=== PATIENT | male | born 1970 | race Asian ===

== ENCOUNTER 2020-03-02 01:20 | Emergency (ER) | payer OTHER ==
[~2020-03-02] VITALS: Ht 172.7 cm; Wt 65.2 kg
[2020-03-02] MEDS ORDERED: ZIPRASIDONE 20 MG INJ IM ONE ×2 (01:24→01:30)
[2020-03-02] MEDS ORDERED: LORazepam 2 MG/ML, 1ML IM ONE (01:30)
[2020-03-02] MEDS ORDERED: LORazepam 2 MG/ML, 1ML ONE ×2 (01:40→02:31)
[2020-03-02 01:47] LABS: BASOPHILS % (AUTO) 0 % (0-1); EOSINOPHILS % (AUTO) 2 % (1-7); LYMPHOCYTES % (AUTO) 40 % (22-44); MEAN CORPUSCULAR HEMOGLOBIN 32.3 pg (27.5-34.5); MEAN CORPUSCULAR HGB CONC 33.5 g/dL (33.2-36.2); MEAN PLATELET VOLUME 6.9 fL (7.4-10.4); MONOCYTES % (AUTO) 7 % (2-9); NEUTROPHILS % (AUTO) 51 % (42-75); PLATELET COUNT 251 x10^3/uL (130-400); RED BLOOD COUNT 5.03 x10^6/uL (4.38-5.82); RED CELL DISTRIBUTION WIDTH 13.4 % (9.4-14.8)
[2020-03-02 01:49] LABS: MD NO
--- NOTE | 2020-03-02 01:50 | NUR ---
THIS IS A 49 YO MALE BIB [facility] FROM HOME FOR ETOH INTOXICATION WITH MGLF WITH WHAT APPEARS TO BE SUPERFICIAL LAC TO UPPER AND BOTTOM LIP. PATIENT BROUGHT IN AND IS NAKED, COMBATIVE, TRYING TO GRAB AND SPIT ON STAFF. PATIENT GROSSLY INTOXICATED, AND UNCOOPERATIVE. PATIENT PLACED IN 4 POINT RESTRAINTS DUE TO COMBATIVE/UNCOOPERATIVE BEHAVIOR AND TRYING TO HIT STAFF, SPIT CHERRY APPLIED FOR ATTEMPT TO BITE/LICK/SPIT ON ANOTHER RN IN ROOM. ALL MONITORING IN PLACE, VSS, MEDICATED PER EMAR. SINUS TACHYCARDIA ON MONITOR IN LOW 100'S. WCTM.
--- NOTE | 2020-03-02 01:55 | NUR ---
CT DELAY, PT UNCOOPERATIVE AT THIS TIME.
[2020-03-02 01:59] LABS: INTERNATIONAL NORMALIZED RATIO 0.94 (0.93-1.1)
[2020-03-02 02:00] LABS: ALANINE AMINOTRANSFERASE 10 U/L (12-78); ALBUMIN 4.6 g/dL (3.4-5.0); ANION GAP 10 mmol/L (5-15); CALCIUM 9.1 mg/dL (8.5-10.1); CHLORIDE 111 mmol/L (98-107); CREATININE 1.24 mg/dL (0.7-1.3)
[2020-03-02 02:04] LABS: ALKALINE PHOSPHATASE 74 U/L (45-117); BILIRUBIN,TOTAL 0.5 mg/dL (0.2-1.0); TOTAL PROTEIN 8.5 g/dL (6.4-8.2)
[2020-03-02] MEDS ORDERED: LORazepam 2 MG/ML, 1ML IM PRN (02:30)
[2020-03-02] MEDS ORDERED: DIPHENHYDRAMINE 50 MG/ML, 1ML IM ONE (02:30)
[2020-03-02] MEDS ORDERED: DIPHENHYDRAMINE 50 MG/ML, 1ML ONE (02:31)
--- NOTE | 2020-03-02 02:37 | NUR ---
PATIENT MEDICATED PER EMAR FOR CONTINUED YELLING/SCREAMING/BEING COMBATIVE NAD TRYING TO GET UP/OUT OF BED. 4 POINT RESTRAINTS STILL IN PLACE. ALL MONITORING IN PLACE
--- NOTE | 2020-03-02 03:00 | NUR ---
REPORT FROM KATHY DUVAL ASSUMING CARE OF PT AT THIS TIME
[2020-03-02] MEDS ORDERED: KETAMINE 10 MG/ML, 20ML ONE ×2 (03:24→03:30)
[2020-03-02] MEDS ORDERED: KETAMINE 10 MG/ML, 20ML IV ONE ×2 (03:30→05:30)
[2020-03-02] MEDS ORDERED: KETAMINE 100 MG/ML, 5ML IV ONE (03:30)
--- NOTE | 2020-03-02 03:32 | NUR ---
CT CALLED TO GET PT TO CT, STS THEY HAVE ANOTHER SCAN GOING RIGHT NOW BUT WILL COME WHEN THEY CAN
--- NOTE | 2020-03-02 04:13 | NUR ---
PT TAKEN TO CT, PT HOWEVER UNCOOPERATIVE AND COMBATIVE WITH STAFF FOR PROCEEDURE, PT GIVEN 100MG KETAMINE PER DR MARQUEZ. DR. MARQUEZ AT BEDSIDE IN CT FOR SEDATION, PT TOLERATED WELL. PER DR MARQUEZ PT REQUIRES SUTURES IN LOWER LIP PT TO BE SEADATED FURTHER FOR THIS PROCEEDURE WELL FOR SAFETY OF STAFF AND PT.
--- NOTE | 2020-03-02 04:30 | NUR ---
DR MARQUEZ AT BEDSIDE FOR SUTURES AT THIS TIME
--- NOTE | 2020-03-02 04:46 | NUR ---
PT MAINTAINING OWN AIRWAY BUT REQ FREQ SUCCTIONING FOR SECRETIONS
[2020-03-02] MEDS ORDERED: DIPH,PERTUSS(ACELL),TET VAC/PF 0.5 ML IM-VACC ONE ×2 (05:00→09:09)
--- NOTE | 2020-03-02 05:22 | NUR ---
PT NOW MANAGING SECRETIONS WELL AT THIS TIME. MINIMAL SUCTIONING NEEDED
--- NOTE | 2020-03-02 05:45 | NUR ---
SECURITY AT BEDSIDE TO ASSIST/ REMOVE SOME RESTRAINTS
[2020-03-02] MEDS ORDERED: MAGNESIUM SULFATE 1 GM, THIAMINE 100 MG, FOLIC ACID 1 MG, MVI ADULT 10 ML in SODIUM CHL... IV ONE (06:30)
--- NOTE | 2020-03-02 06:45 | NUR ---
PT RESTING ON HENRY GARRISON, STILL IN 2PT RESTRAINTS D/T PT THRASHING AROUND INTTERMITTENTLY.
--- NOTE | 2020-03-02 07:17 | NUR ---
REPORT SAMIR DUVAL. PT IN 2 HARD RESTRAINTS. ORDER UP TO DATE. PT MOANING, MOVING, WON'T RESPOND TO COMMANDS, VSS, CMS INTACT.
--- NOTE | 2020-03-02 08:17 | NUR ---
IVF PER MAR. PT MOANING, TRYING TO GET OUT OF BED. VS CHARTED. VOIDED TO URINAL.
[2020-03-02 08:18] VITALS: BP 106/74
--- NOTE | 2020-03-02 08:50 | NUR ---
YAZ FRIEND; [phone] CAN CALL FOR RIDE
--- NOTE | 2020-03-02 08:51 | NUR ---
FRIEND AT BEDSIDE. PT INCOHERENT, WONT FOLLOW COMMANDS, TRYNG TO GET OUT OF BED. SECURITY WAS AT BEDSIDE TO SWITCH ARM/LEG RESTRAINTS. +CMS.
--- NOTE | 2020-03-02 09:49 | NUR ---
REPORT TO REBECCA DUVAL.
--- NOTE | 2020-03-02 10:03 | NUR ---
RESTRAINTS AT THIS TIME DC'D. PT VERBAL AXOX4 AND ABLE TO HAVE A FLUENT CONVERSATION. PT AGREES TO STAY IN BED AT THIS TIME AND IV WAS PULLED OUT PER PT. PT IS REFUSING ANOTHER IV START AT THIS TIME.
--- NOTE | 2020-03-02 10:20 | NUR ---
ATTEMPTED TO CALL FOR RIDE X2. PT ABLE TO AMBULATE IN HOSPITAL BUT CONCERN FOR ICY CONDITIONS AND PTS DESIRE TO WALK HOME. PT REDIRECTED BACK TO ROOM FROM OUTSIDE AFTER WALKING AND WITNESSING PT SLIPPING ON ICE. UNABLE TO OBTAIN PT ADDRESS
--- NOTE | 2020-03-02 10:35 | NUR ---
PT INSISTENT ON LEAVING. PT AXOX4, ABLE TO AMBULATE STEADILY IN ER, IN NO APPARENT DISTRESS. PT STATES HIS LEGS ARE SORE FROM MEDICATIONS GIVEN IN HIS THIGHS. CAB VOUCHER GIVEN TO PT RESIDENCE OF [address]. TECH AT PTS SIDE TO ENSURE PT GETS IN CAB PT WAS VERY INSISTENT ON LEAVING AND DID NOT WANT TO WAIT FOR HIS FRIEND. PT REASSURED TO TAKE CAB THE ICY WEATHER COULD RESULT IN HIM FALLING. PT DID NOT WISH TO HAVE HIS PAPERWORK. 3RD ATTEMPT TO CALL FRIEND WAS UNSUCCESSFUL. PT
== END 2020-03-02 10:45 | disposition home or self-care (01) ==
LOC: ED 01:28
DX: S06.0X0A Concussion without loss of consciousness, initial encounter (principal); S01.511A Laceration without foreign body of lip, initial encounter; S01.512A Laceration without foreign body of oral cavity, initial encounter; F19.14 Other psychoactive substance abuse with psychoactive substance-induced mood disorder; F10.129 Alcohol abuse with intoxication, unspecified; G31.2 Degeneration of nervous system due to alcohol; K04.7 Periapical abscess without sinus; G89.11 Acute pain due to trauma; Y90.9 Presence of alcohol in blood, level not specified; W18.39XA Other fall on same level, initial encounter; Y93.89 Activity, other specified; Y92.89 Other specified places as the place of occurrence of the external cause; Y99.8 Other external cause status
CPT/HCPCS: 12053; 36415; 70450; 70486; 72125; 80053; 80307; 85025; 85610; 85730; 96365; 96366; 96372; 96375; 99152; 99285; J1200; J2060; J3411; J3475; J3486; J7030